=== PATIENT | male | born 1965 | race Two or more races ===

== ENCOUNTER 2019-11-26 09:26 | Emergency (ER) | payer OTHER ==
[~2019-11-26] VITALS: Ht 185.4 cm; Wt 83.9 kg
[2019-11-26 09:30] VITALS: BP 115/84
[2019-11-26] MEDS ORDERED: IBUPROFEN 400 MG TABLET ONE (09:56)
[2019-11-26] MEDS ORDERED: IBUPROFEN 400 MG TABLET PO ONE (10:00)
--- NOTE | 2019-11-26 10:02 | NUR ---
Patient discharged tin custody in stable condition. Written and verbal after care instructions given. Patient verbalizes understanding of instruction.
== END 2019-11-26 10:51 ==
LOC: ER 09:28
DX: M54.5 Low back pain (principal)

== ENCOUNTER 2020-09-02 09:06 | Emergency (ER) | payer OTHER ==
[~2020-09-02] VITALS: Ht 182.9 cm; Wt 83.9 kg
[2020-09-02 09:23] VITALS: BP 100/60
--- NOTE | 2020-09-02 09:35 | NUR ---
AT BEDSIDE FOR EVAL.
--- NOTE | 2020-09-02 10:10 | NUR ---
Patient discharged in custody in stable condition. Written and verbal after care instructions given. Patient verbalizes understanding of instruction.
== END 2020-09-02 10:11 | disposition home or self-care (01) ==
LOC: ER 09:08
DX: G89.29 Other chronic pain (principal); M54.5 Low back pain